=== PATIENT | female | born 1990 | race Hispanic/Latino ===

== ENCOUNTER → 2017-07-19 | Outpatient (CLI) | payer BC ==
--- NOTE | 2017-07-20 10:12 | US ---
EXAM DESCRIPTION: Renal ultrasound. CLINICAL HISTORY: MICROSCOPIC HEMATURIA COMPARISON: Bilateral renal arterial Doppler evaluation on the same visit. TECHNIQUE: Transcutaneous scanning: Two-dimensional and Doppler modes. FINDINGS: Right kidney measures 9.3 x 5.3 x 4.3 cm; mid-renal cortical thickness normal limits. . Normal except for prominent renal pyramids. No hydronephrosis No calcifications. Smooth contour of the kidney with no perinephric fluid. Normal vascularity. Proximal ureter not visualized. Left kidney measures 9.8 x 5.4 x 5.5 cm; mid-renal cortical thickness normal limits. Echogenic stones with acoustic shadowing measuring 4.4 and 4.0 mm. No hydronephrosis. No calcifications. Smooth contour of the kidney with no perinephric fluid. Normal vascularity.. Proximal ureter not visualized. Urinary bladder was visualized. 6.1 x 4.6 x 4.1 cm for volume 78.2 mL. Abdominal aorta diameter not measured. IMPRESSION: Kidneys normal size. Normal cortical thickness with slightly prominent renal pyramids. Two stones in the left kidney with no hydronephrosis. Proximal and distal ureters not dilated. No radiodense stones in the urinary bladder. Electronically signed by: Kirby Falcon MD 07/20/2017 10:11 AM CDT
== END ==
LOC: US 09:18
PROVIDERS: ATTEND Family Medicine
DX: R10.84 Generalized abdominal pain (principal); D72.819 Decreased white blood cell count, unspecified; R31.21 Asymptomatic microscopic hematuria; N20.0 Calculus of kidney

== ENCOUNTER → 2017-12-12 | Outpatient (CLI) | payer BC | LOC: GMAM 18:07 | PROVIDERS: ATTEND Family Medicine | DX: R07.2 Precordial pain (principal) ==